=== PATIENT | female | born 1945 | race Caucasian/White ===

== ENCOUNTER 2019-07-02 11:33 | Emergency (ER) | payer MEDICARE ==
--- OUTSIDE RECORDS SUMMARY | 2019-07-02 11:38 | XMS REPORT | Summary of Care ---
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 diltiazem (CARTIA Take 1 Cap by 90 Cap 3 Active XT) 180 MG Oral mouth DAILY. 9 CAPSULE SR 24 HR famotidine (PEPCID) Take 1 Tab by 180 Tab 3 Active 20 MG Oral mouth TWICE 9 TabIndications: DAILY. Gastroesophageal reflux disease, esophagitis presence not specified predniSONE Take 1 Tab by 50 Tab 0 Active (DELTASONE) 10 MG mouth 9 Oral TabIndications: DIRECTED. Restrictive lung disease warfarin (JANTOVEN) Take 1-1.5 135 Tab 3 Active 4 MG Oral Tabs by mouth 9 TabIndications: DAILY. As Chronic atrial directed which fibrillation is 6mg Sun and Em. 4mg remaining days of week levalbuterol HFA Take 1-2 Puffs 0 Active (XOPENEX HFA) 45 by inhalation MCG/ACT Inhalation EVERY FOUR Aerosol HOURS NEEDED (shortness of breath). predniSONE Take 1 Tab by 90 Tab 0 Active (DELTASONE) 5 MG mouth DAILY. 9 Oral TabIndications: Chronic respiratory failure with hypercapnia (HCC) digoxin (LANOXIN, Take 1 Tab by 90 Tab 3 Active DIGITEK) 125 MCG mouth DAILY. 9 Oral Tab furosemide (LASIX) Take 1 Tab by 90 Tab 3 Active 20 MG Oral Tab mouth DAILY. 9 Fluticasone Take 1 INHL by 1 Each 5 Active Furoate-Vilanterol inhalation 9 (BREO ELLIPTA) DAILY. 100-25 MCG/INH Inhalation AEROSOL POWDER, BREATH ACTIVATEDIndications : Restrictive lung disease Fluticasone Take 1 INHL by 1 Each 5 05/18/20 Discontinued Furoate-Vilanterol inhalation 9 19 (Reorder) (BREO ELLIPTA) DAILY. 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 Referring Provider: Catie Indication: chronic Afib Target Range: 2.0-3.0 Duration: Indefinite Additional factors influencing anticoagulation: CHADS2 score of 2 for congestive heart failure and hypertension [id number] score of 4 for age > 65, congestive heart failure, hypertension, female gender Diltiazem increases warfarin effect Updated Referral: 07/05/14, 08/30/15, 10/07/16, 01/2018, 03/09/19 Updated ACS Orders: 1/22/15, 09/03/15, 10/07/16, 01/28/18, 03/29/19 Mitral regurgitation 04/07/2013 Chest wall deformity 05/22/2011 CHF (congestive heart failure) 07/17/2010 Hypoxemia 07/17/2010 Overview: Secondary to CHF Oxygent at 2 L/min at rest 4L/min with [facility] Mixed hyperlipidemia 05/09/2008 Paroxysmal ventricular tachycardia 05/09/2008 Overview: Non sustained Stress test negative 11/26 Left ventricular ejection fraction 52% 11/26. 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 Left ventricular ejection fraction 52%. documented as of this encounter (statuses as of 05/18/2019) Immunizations Name Administration Dates Next Due Depo Medrol (80mg) 09/06/2014 Influenza (IM) Preservative Free 03/23/2013, 04/05/2012, 03/31/2011 Influenza Vaccine High Dose 03/27/2014 Influenza Vaccine Whole 04/09/2009 Influenza Virus Vaccine - Whole 04/05/2008, 04/05/2007 Influenza Virus Vaccine Pres Free 6-35 03/26/2010 Months PNEUMOCOCCAL POLYSACCHARIDE VACCINE 06/22/2007 Pneumococcal Conjugate(13 Valent) 03/08/2015 documented as of this encounter Social History Tobacco Use Types Packs/Day Years Used Date Former Smoker Cigarettes 0.2 10 Quit: 05/22/1966 Smokeless Tobacco: Never Used Alcohol Use Drinks/Week oz/Week Comments No 0 Standard drinks or equivalent 0.0 Sex Assigned at Date Recorded Not on file Job Start Date Occupation Industry Not on file Not on file Not on file Travel History Travel Start Travel End No recent travel history available. documented as of this encounter Last Filed Vital Signs Vital Sign Reading Time Taken Comments Blood Pressure 148/78 05/18/2019 10:54 AM EST Pulse 91 05/18/2019 10:54 AM EST Temperature - - Respiratory Rate - - Oxygen Saturation 93% 05/18/2019 10:54 AM EST Inhaled Oxygen Concentration - - Weight 78.5 kg (173 lb) 05/18/2019 10:54 AM EST Height 167.6 cm (5' 6") 05/18/2019 10:54 AM EST Body Mass Index 27.92 05/18/2019 10:54 AM EST documented in this encounter Patient Instructions Patient InstructionsCreIngrid copeland MD - 05/18/2019 11:00 AM ESTPlan Continue 10 mg for 2 more days - Then go down to 7.5 mg X 7 days Then 5 mg - Hang out there for 1-2 weeks and then consider - You could then consider reduction by 1 mg - but you might wants toconsider staying on 3-5 mg consistently- documented in this encounter Progress Notes Ingrid Hollins MD - 05/18/2019 11:00 AM EST NAME:Swetha Nunez 1945: 1945 ENC Date: 05/18/2019 CC: Chief Complaint Patient presents with Follow Up 1 mo f/u Restrictive lung disease and prednisone Swetha Nunez is a 74-y.o. female Cardiopulmonary Disease Has significant restrictive lungs disease On trilogy - had exacerbation at last 2 visits and was improved with prednisone course ( was not improved with antibiotic ) 2. 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 diltiazem (CARTIA XT) 180 MG Oral CAPSULE SR 24 HR Take 1 Cap by mouth DAILY. famotidine (PEPCID) 20 MG Oral Tab Take 1 Tab by mouth TWICE DAILY. Fluticasone Furoate-Vilanterol (BREO ELLIPTA) 100-25 MCG/INH Inhalation AEROSOL POWDER, BREATH ACTIVATED Take 1 INHL by inhalation DAILY. furosemide (LASIX) 20 MG Oral Tab Take 1 Tab by mouth DAILY. levalbuterol HFA (XOPENEX HFA) 45 MCG/ACT Inhalation Aerosol Take 1-2 Puffs by inhalation EVERY FOUR HOURS NEEDED (shortness of breath). Polyethylene Glycol 3350 (MIRALAX PO) Take by mouth. predniSONE (DELTASONE) 10 MG Oral Tab Take 1 Tab by mouth DIRECTED. predniSONE (DELTASONE) 5 MG Oral Tab Take 1 Tab by mouth DAILY. warfarin (JANTOVEN) 4 MG Oral Tab Take 1-1.5 Tabs by mouth DAILY. As directed which is 6mg Sun and Em. 4mg remaining days of week No current facility-administered medications for this visit. Patient Active Problem List Diagnosis Date Noted Chronic respiratory failure with hypercapnia ([facility]) 06/28/2015 Priority: High senior care current use of anticoagulant therapy 08/23/2014 Priority: High Managed by: [facility] Referring Provider: Catie Indication: chronic Afib Target Range: 2.0-3.0 Duration: Indefinite Additional factors influencing anticoagulation: CHADS2 score of 2 for congestive heart failure and hypertension [id number] score of 4 for age > 65, congestive heart failure, hypertension, female gender Diltiazem increases warfarin effect Updated Referral: 07/05/14, 08/30/15, 10/07/16, 01/2018, 03/09/19 Updated ACS Orders: 07/13/14, 09/03/15, 10/07/16, 01/28/18, 03/29/19 CHF (congestive heart failure) ([facility]) 07/17/2010 Priority: High Hypoxemia 07/17/2010 Priority: High Secondary to CHF Oxygent at 2 L/min at rest 4L/min with activity [facility] Chronic atrial fibrillation 10/07/2016 COPD, severe ([facility]) 04/17/2015 [facility] at 2 LPM q 24 hours a day Mitral regurgitation 04/07/2013 Restrictive lung disease severe s/p left lower lung resection Chest wall deformity 05/22/2011 Mixed hyperlipidemia 05/09/2008 Paroxysmal ventricular tachycardia (HCC) 05/09/2008 Non sustained Stress test negative 11/26 Left ventricular ejection fraction 52% 11/26. Essential hypertension, benign 07/14/2007 GERD (gastroesophageal reflux disease) 07/14/2007 Family History Problem Relation Age of Onset Pulmonary Mother smoker Heart Disease Father Hypertension Father No cardiopulmonary symptoms No upper or lower GI complaints No urinary tract symptoms. No bruising/ bleeding. No neurological complaints . No insomnia.+ . Social History Tobacco Use Smoking status: Former Smoker Packs/day: 0.20 Years: 10.00 Pack years: 2.00 Types: Cigarettes Last attempt to quit: 05/22/1966 Years since quittin.0 Smokeless tobacco: Never Used Substance Use Topics Alcohol use: No Alcohol/week: 0.0 standard drinks Drug use: No OBJECTIVE: BP 148/78 | Pulse 91 | Ht 5' 6" (1.676 m) | Wt 173 lb (78.5 kg) | SpO2 93% | BMI 27.92 kg/m. Heent neg Neck no JVD, thyromegaly or bruit Lungs Clear CV rrr Abd soft, nontender, no organomegaly Ext no edema; no lesions; pulses intact Neuro: intellect intact ; motor including gait unremarkable A/P ICD-9-CM ICD-10-CM 1. Chronic atrial fibrillation 427.31 I48.20 2. Restrictive lung disease 518.89 J98.4 Fluticasone Furoate-Vilanterol (BREO ELLIPTA) 100-25 MCG/INH Inhalation AEROSOL POWDER, BREATH ACTIVATED 3. senior care current use of anticoagulant therapy V58.61 Z79.01 4. Essential hypertension, benign 401.1 I10 BASIC METABOLIC PANEL Patient Instructions Plan Continue 10 mg for 2 more days - Then go down to 7.5 mg X 7 days Then 5 mg - Hang out there for 1-2 weeks and then consider - You could then consider reduction by 1 mg - but you might wants toconsider staying on 3-5 mg consistently- AUTHOR: Ingrid Hollins MD 12:03 05/18/2019 documented in this encounter Plan of Treatment Date Type Specialty Care Team Description 05/27/2019 AntiCoag Anticoagulation 06/10/2019 Office Visit [place] [address] [place] [address] [phone] 07/28/2019 Office Visit Pulmonary Romeo Singh MD [address] [place] [address] [phone] 11/02/2019 Office Visit Cardiology Adry Frank CRNP [address] [address] [phone] Name Type Priority Associated Diagnoses Order Schedule BASIC METABOLIC PANEL Lab Routine Essential hypertension, Expected: 2018 benign (Approximate), Expires: 11/14/2019 Health Maintenance Due Date Last Done Comments OSTEOPOROSIS SCREENING 2011 LIPID DISORDER SCREENING 10/06/2019 10/05/2018, 05/01/2009, 08/01/2008, Additional history exists DEPRESSION SCREENING 10/14/2019 10/13/2018, 10/13/2018 FALL RISK ASSESSMENT 10/14/2019 10/13/2018, 10/13/2018 PNEUMOCOCCAL 65+YRS (2 of 2 04/12/2020 03/08/2015, 06/22/2007 Postponed from - PPSV23) 03/08/2016 (Patient refused) INFLUENZA VACCINE (#1) 2020 03/27/2014, 03/23/2013, Postponed from 04/05/2012, Additional 02/20/2019 (Patient history exists refused) ZOSTER IMMUNIZATION SERIES 05/18/2020 Postponed from (1 of 2) 1996 (Vaccine not available) HPV IMMUNIZATION SERIES Aged Out No longer eligible based on patient's age to complete this topic MEDICARE ANNUAL WELLNESS Discontinued VISIT MENINGOCOCCAL VACCINE IMM Aged Out No longer eligible based on patient's age to complete this topic documented as of this encounter Goals Goal Patient Goal Associated Recent Patient-Stated? Author Type Problems Progress Blood Pressure Blood Pressure 148/78 No Crepet, < 150/90 (05/18/2019 MD Ingrid 10:54 AM EST) Note: This is an individualized treatment (blood pressure) goal for Swetha Nunez: Displayed above (on the left) is your goal for blood pressure control. Your most recent blood pressure is also shown above, on the right. You should try to achieve blood pressures that are lower than your goal listed above (on the left). Weight increase vs. 18 mo min CHF 5 (05/18/2019 10:54 AM EST) Ingrid Maya MD (lbs) < 5 Note: This is an individualized treatment (congestive heart failure, CHF) goal for Swetha Nunez: Displayed above (on the right) is how many pounds you are in excess of your lowest weight over the past 18 months. Note that lower numbers are better. Excessive weight gain often indicates fluid reten tion and worsening heart failure. You should contact your doctor immediately if the above number is too high (above your goal, the number on the left). Keep immunizations current Lifestyle Ingrid Maya MD Note: This is an individualized lifestyle goal for Swetha Nunez: Please be sure to keep up-to-date on recommended immunizations. For example, this would include a yearly influenza vaccine. Immunization status can be seen by looking at the Health Maintenance sections of your e[facility], Plan of Care, and any After Visit Summaries. Consume a me-oarwf-ubey diet Lifestyle Ingrid Maya MD Note: This is an individualized lifestyle goal for Swetha Nunez: Please do not add additional salt to your food. Additional salt may lead to fluid retention and worsen your congestive heart failure. Take all prescribed medications as directed Self-management Ingrid Maya MD Note: This is an individualized self-management goal for Swetha Nunez: Please take all prescribed medications as directed. 1. Do not skip doses. If you cannot afford your medications, talk with your doctor. 2. Use a pill reminder system such as a pill box if needed. Your pharmacist can help you with this. 3. Contact your Pharmacy 5 days before your medication runs out. If you cannot take your medications for any reasons, talk with your doctor. 4. Please bring all of your medication bottles and inhalers (or a list of all your medications/inhalers) with you to every visit. Potential barriers to meeting all of your care plan goals will continue to be addressed on an ongoing basis. Check your weight daily Self-management Ingrid Maya MD Note: This is an individualized self-management goal for Swetha Nunez: Please check your weight daily. Refer to the accompanying CHF treatment goal and call your doctor immediately for further instructions on how to respond to unexpected weight gain. documented as of this encounter Results Not on filedocumented in this encounter Visit Diagnoses Diagnosis Chronic atrial fibrillation - Primary Atrial fibrillation Restrictive lung disease Other diseases of lung, not elsewhere classified senior care current use of anticoagulant therapy Essential hypertension, benign documented in this encounter Insurance Payer Benefit Plan / Subscriber ID Effective Dates Phone Address Type Group MEDICARE MEDICARE PART A xxxxxxxxxxx 1975-Present Medicare & B [facility] COMM[facility]CIAL [facility] xxxxxxxxxxx 2016-Present [facility] OPTIONS Guarantor Name Account Type Relation to Date of Phone Billing Address Patient Swetha Mane Personal/Family 1945 [address] [phone] [place], [place] (Work) [address] documented as of this encounter Advance Directives Code Status Date Activated Date Inactivated Comments Full Code 03/27/2015 7:27 PM 04/04/2015 2:21 PM Does patient have decision making capacity? yes Order discussed with: Patient I discussed all options and patient/surrogate requested and agreed to: Other (full code) DNR 03/22/2015 6:24 PM 03/27/2015 7:27 PM Does patient have decision making capacity? yes Order discussed with: Patient I discussed all options and patient/surrogate requested and agreed to: Do not resuscitate (DNR)
--- OUTSIDE RECORDS SUMMARY | 2019-07-02 11:38 | XMS REPORT | Summary of Care ---
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 Chronic diastolic CHF (congestive heart failure), NYHA class 2 ([facility]); [address] [facility] Mitral valve insufficiency, unspecified etiology; [place] [address] [address] [place] [address] COPD, severe ([facility]) [phone] Allergies Active Allergy Reactions Severity Noted Date Comments Albuterol Sulfate Cardiac Reaction 04/10/2011 Penicillins Unknown Reaction 12/30/2006 Metoprolol Respiratory Reaction 03/05/2011 Shortness of breath, fatigue documented as of this encounter (statuses as of 05/04/2019) Medications Medication Sig Dispensed Refills Start End Date Status Date Polyethylene Glycol Take by 0 Active 3350 (MIRALAX PO) mouth. Fluticasone Take 1 INHL by 1 Each 5 Active Furoate-Vilanterol inhalation 9 (BREO ELLIPTA) DAILY. 100-25 MCG/INH Inhalation AEROSOL POWDER, BREATH ACTIVATED diltiazem (CARTIA Take 1 Cap by 90 [...] 20 MG Oral Tab mouth DAILY. 9 furosemide (LASIX) Take 1 Tab by 90 Tab 3 05/04/20 Discontinued 20 MG Oral Tab mouth DAILY. 8 19 (Reorder) digoxin (LANOXIN, Take 1 Tab by 90 Tab 3 05/04/20 Discontinued DIGITEK) 125 MCG mouth DAILY. 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 08/23/2014 Overview: [facility] Referring Provider: Catie Indication: chronic Afib Target Range: 2.0-3.0 Duration: Indefinite Additional factors influencing anticoagulation: CHADS2 score of 2 for congestive heart failure and hypertension [id number] score of 4 for age > 65, congestive heart failure, hypertension, female gender Diltiazem increases warfarin effect Updated Referral: 07/05/14, 08/30/15, 10/07/16, 01/2018, 03/09/19 Updated ACS Orders: 07/13/14, 09/03/15, 10/07/16, 01/28/18, 03/29/19 Mitral regurgitation 04/07/2013 Chest wall deformity 05/22/2011 CHF (congestive heart failure) 07/17/2010 Hypoxemia 07/17/2010 Overview: Secondary to CHF Oxygent at 2 L/min at rest 4L/min with activity through [facility] Mixed hyperlipidemia 05/09/2008 Paroxysmal ventricular tachycardia 05/09/2008 Overview: Non sustained Stress test negative 11/26 Left ventricular ejection fraction 52% 11/26. 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 Left ventricular ejection fraction 52%. documented as of this encounter (statuses as of 05/04/2019) Immunizations Name Administration Dates Next Due Depo [...] Sign Reading Time Taken Comments Blood Pressure 118/60 05/04/2019 2:19 PM EST Pulse 96 05/04/2019 2:19 PM EST Temperature - - Respiratory Rate - - Oxygen Saturation - - Inhaled Oxygen Concentration - - Weight 77.6 kg (171 lb) 05/04/2019 2:19 PM EST Height - - Body Mass Index 27.6 04/13/2019 2:49 PM EDT documented in this encounter Patient Instructions Patient InstructionsHuAdry priest CRNP - 05/04/2019 2:20 PM ESTFollow up in 6 months continue to monitor heart rate and blood pressure Call if symptoms changeElectronically signed by Adry Frank CRNP at 05/04 2:39 PM EST documented in this encounter Plan of Treatment Date Type Specialty Care Team Description 05/18/2019 AntiCoag Anticoagulation 05/18/2019 Office Visit Internal Medicine Ingrid Hollins MD [address] [place] [address] [phone] 06/10/2019 Office Visit Internal Medicine Ingrid Hollins MD [address] [place] [address] [phone] 07/28/2019 Office Visit Pulmonary Romeo Singh MD [address] [place] [address] [phone] 11/02/2019 Office Visit Cardiology Adry Frank CRNP [address] [address] Health Maintenance Due Date Last Done Comments ZOSTER IMMUNIZATION SERIES 1996 (1 of 2) OSTEOPOROSIS SCREENING 2011 LIPID DISORDER SCREENING 10/06/2019 10/05/2018, 05/01/2009, 08/01/2008, Additional history exists DEPRESSION SCREENING 10/14/2019 10/13/2018, 10/13/2018 FALL RISK ASSESSMENT 10/14/2019 10/13/2018, 10/13/2018 PNEUMOCOCCAL 65+YRS (2 of 2 04/12/2020 03/08/2015, 06/22/2007 Postponed from - PPSV23) 03/08/2016 (Patient refused) INFLUENZA VACCINE (#1) 2020 03/27/2014, 03/23/2013, Postponed from 04/05/2012, Additional 02/20/2019 (Patient history exists refused) HPV IMMUNIZATION SERIES Aged Out No longer eligible based on patient's age to complete this topic MEDICARE ANNUAL WELLNESS Discontinued VISIT MENINGOCOCCAL VACCINE IMM Aged Out No longer eligible based on patient's age to complete this topic documented as of this encounter Goals Goal Patient Goal Associated Recent Patient-Stated? Author Type Problems Progress Blood Pressure Blood Pressure 118/60 No Gurvinder, < 150/90 (05/04/2019 MD Ingrid 2:19 PM EST) Note: This is an individualized treatment (blood pressure) goal for Swetha Nunez: Displayed above (on the left) is your goal for blood pressure control. Your most recent blood pressure is also shown above, on the right. You should try to achieve blood pressures that are lower than your goal listed above (on the left). Weight increase vs. 18 mo min CHF 3 (05/04/2019 2:19 PM EST) No Ingrid Hollins MD (lbs) < 5 Note: This is [...] and any After Visit Summaries. Consume a nm-bvwoy-pyqj diet Lifestyle Ingrid Maya MD Note: This [...] Chronic atrial fibrillation - Primary Atrial fibrillation Chronic diastolic CHF (congestive heart failure), NYHA class 2 (HCC) Chronic diastolic heart failure Mitral valve insufficiency, unspecified etiology COPD, severe (HCC) Chronic airway obstruction, not elsewhere classified documented in this encounter Insurance Payer Benefit Plan / Subscriber ID Effective Dates Phone Address Type Group MEDICARE MEDICARE PART A xxxxxxxxxxx 1975-Present Medicare & B [facility] COMMERCIAL [facility] CARE xxxxxxxxxxx 2016-Present [facility] OPTIONS ([address]) [address] [phone] [place], [place] (Work) [address] documented as of this encounter Advance Directives [...]
[2019-07-02 11:47] VITALS: BP 142/91
--- NOTE | 2019-07-02 12:18 | UC ---
Abdominal Pain Female HPI - HPI Summary HPI Summary: RLQ abdominal pain x 1 days sudden onset sever pain 10 out 10 , sharp radiating to groin , lasted 2 hrs and resolved after she voided a few time + frequency, no dysuria , no n/v/d/c hx of kidney stones - History of Current Complaint Chief Complaint: UCGU Stated Complaint: URINARY COMPLAINT Time Seen by Provider: 07/02/19 11:39 Hx Obtained From: Patient Onset/Duration: Sudden Onset, Lasting Days - 1, Resolved Timing: Intermittent Episodes Lasting: - 2 hrs Severity Initially: Severe Severity Currently: None Pain Intensity: 0 Location: Discrete At: RLQ Radiates: Yes Radiates to: Inguinal Character: Sharp Aggravating Factor(s): Nothing Alleviating Factor(s): Nothing Associated Signs and Symptoms: Positive: Urinary Symptoms. Negative: Fever, Cough, Chest Pain, Dizzy, Back Pain, Constipation, Blood in Stool, Decreased Appetite, Vaginal Bleeding, Vaginal Discharge, Nausea, Vomiting, Diarrhea Allergies/Adverse Reactions: Allergies Allergy/AdvReac Type Severity Reaction Status Date / Time Penicillins Allergy Swelling Verified 07/02/19 11:39 Of Face,Lips,& Throat Home Medications: Home Medications Fluticasone/Vilanterol MDI(NF) [Breo Ellipta MDI 100/25(NF)] 1 puff INH DAILY WITH MEAL 07/02/19 [History Confirmed 07/02/19] PMH/Surg Hx/FS Hx/Imm Hx Cardiovascular History: Cardiac Disease, Atrial Fibrillation Respiratory History: COPD - Surgical History Surgical History: Yes Surgery Procedure, Year, and Place: 1971 LL lobectomy - Family History Known Family History: Negative: Cardiac Disease, Hypertension, Diabetes - Social History Alcohol Use: Rare Substance Use Type: None Smoking Status (MU): Never Smoked Tobacco - Immunization History Most Recent Influenza Vaccination: 2017 Most Recent Pneumonia Vaccination: Past Review of Systems All Other Systems Reviewed And Are Negative: Yes Is Patient Immunocompromised?: No Physical Exam Triage Information Reviewed: Yes Appearance: Well-Appearing, No Pain Distress, Well-Nourished Vital Signs: Initial Vital Signs Temp 97.9 F 07/02/19 11:41 Pulse 104 07/02/19 11:41 Resp 18 07/02/19 11:41 BP 142/91 07/02/19 11:41 Pulse Ox 99 07/02/19 11:41 Vital Signs Reviewed: Yes Eye Exam: Normal Eyes: Positive: Conjunctiva Clear ENT: Positive: Normal ENT inspection, Hearing grossly normal, Pharynx normal Neck: Positive: Supple, Nontender, No Lymphadenopathy Respiratory: Positive: Chest non-tender, Decreased breath sounds Cardiovascular: Positive: RRR, No Murmur, Pulses Normal Abdomen Description: Positive: Nontender, Soft. Negative: CVA Tenderness (R), CVA Tenderness (L), Distended, Guarding Bowel Sounds: Positive: Present Skin Exam: Normal Abd Pain Female Course/Dx - Differential Dx/Diagnosis Provider Diagnosis: Renal colic on right side Discharge ED - Sign-Out/Discharge Documenting (check all that apply): Patient Departure All imaging exams completed and their final reports reviewed: No Studies - Discharge Plan Condition: Stable Disposition: HOME Patient Education Materials: Renal Colic (ED) Referrals: Ingrid Hollins MD [Primary Care Provider] - If Needed Additional Instructions: your pain was most likely due to passing a kidney stone no further treatment/ work-up needed at this time cont. with rest, increase fluid intake for few days take Tylenol as needed for pain - Billing Disposition and Condition Condition: STABLE Disposition: Home
== END 2019-07-02 12:25 | disposition home or self-care (01) ==
LOC: UCEAST 11:33
DX: N23 Unspecified renal colic (principal); J44.9 Chronic obstructive pulmonary disease, unspecified; Z79.51 Long term (current) use of inhaled steroids; Z88.0 Allergy status to penicillin
CPT/HCPCS: 81003; 99211; G0463

== ENCOUNTER 2021-10-23 05:39 | Inpatient (IN) ==
[2021-10-23] MEDS ORDERED: Albuterol 0.5% CONC CONTINUOUS NEB.SOL 5 mg/ml 20 ml BOT INH ONE (05:57)
[2021-10-23] MEDS ORDERED: methylPREDNISolone 125 mg 2 ML VIAL IV ONE (05:57)
[2021-10-23 05:58] LABS: Hematocrit 45 % (35-47); Hemoglobin 14.4 g/dL (12.0-16.0); Mean Corpuscular HGB Conc 32 g/dL (31-36); Mean Corpuscular Hemoglobin 27 pg (27-31); Mean Corpuscular Volume 85 fL (80-97); Platelet Count 239 10^3/uL (150-450); Red Blood Count 5.36 10^6 /uL (3.70-4.87); Red Cell Distribution Width 15 % (10-15); White Blood Count 7.3 10^3/uL (3.5-10.8)
[2021-10-23] MEDS ORDERED: Albuterol 2.5mg/3 ml (0.083%) NEB.SOLN INH ONE ×2 (05:59→06:05)
[2021-10-23 06:55] LABS: Albumin 4.4 g/dL (3.2-5.2); Albumin/Globulin Ratio 1.3 (1-3); Calcium 9.3 mg/dL (8.6-10.3); Globulin 3.5 g/dL (2-4); Potassium 4.2 mmol/L (3.5-5.0); Total Bilirubin 0.8 mg/dL (0.2-1.0); Total Protein 7.9 g/dL (6.4-8.9); eGFR CKD-EPI 94.3 (>60)
[2021-10-23 07:22] LABS: High Sensitivity Troponin 1 Hr 20 pg/mL (<15)
[2021-10-23 07:27] LABS: ABS Lymphocytes 0.8 10^3/ul (1.0-4.8); ABS Monocytes 2.2 10^3/ul (0-0.8); ABS Neutrophils 4.3 10^3/ul (1.5-7.7); Lymphocyte % 10.3 %; Nucleated Red Blood Cells % 0.2
[2021-10-23 07:34] LABS: PCO2 Arterial 69 mmHg (35-45); PO2 Arterial 231 mmHg (80-100)
[2021-10-23 07:34] LABS: Anisocytosis 1+
[2021-10-23] MEDS ORDERED: Albuterol/Ipratropium NEB.SOL (2.5/0.5 MG) 3 ML NEB.SOLN INH ONE (09:47)
[2021-10-23 11:41] LABS: Digoxin 0.7 ng/ml (0.8-2.0)
[2021-10-23] MEDS ORDERED: Polyethylene Glycol 3350 17 GM PACKET PO PRN (11:43)
[2021-10-23] MEDS ORDERED: Furosemide 40 mg/4 ml IV VIAL IV SLOW PU ONE (11:46)
[2021-10-23 12:41] LABS: Magnesium 2.1 mg/dL (1.9-2.7); Phosphorus 3.4 mg/dL (2.5-5.0)
[2021-10-23] MEDS ORDERED: cefTRIAXone 1 gm/50 mL D5W 1 GM/50 ML BAG IV ONE (12:45)
[2021-10-23] MEDS: Levalbuterol 1.25MG/0.5ML NEB.SOL INH SCH ×4 (13:21→23:11)
[2021-10-23] MEDS: methylPREDNISolone SOD 40 mg/ml 1 ml VIAL IV SCH ×2 (15:40→20:48)
[2021-10-23] MEDS: cefTRIAXone 1 gm/50 mL D5W 1 GM/50 ML BAG IV SCH (15:58)
[2021-10-23] MEDS: Azithromycin 500 mg/250 ml NS 500 MG/250 ML BAG IVPB SCH (17:02)
[2021-10-23] MEDS ORDERED: Warfarin per PHARMACY **NOTE FOLLOW UP SCH (18:00)
[2021-10-24] MEDS: Levalbuterol 1.25MG/0.5ML NEB.SOL INH SCH ×4 (03:12→19:36)
[2021-10-24 05:03] LABS: ABS Lymphocytes 0.2 10^3/ul (1.0-4.8); ABS Monocytes 0.2 10^3/ul (0-0.8); ABS Neutrophils 1.9 10^3/ul (1.5-7.7); Eosinophil % 0.1 %; Hematocrit 40 % (35-47); Hemoglobin 12.9 g/dL (12.0-16.0); Lymphocyte % 8.7 %; Mean Corpuscular HGB Conc 32 g/dL (31-36); Mean Corpuscular Hemoglobin 27 pg (27-31); Mean Corpuscular Volume 85 fL (80-97); Mean Platelet Volume 8.7 fL (7.4-10.4); Nucleated Red Blood Cells % 0.2; Platelet Count 181 10^3/uL (150-450); Red Blood Count 4.76 10^6 /uL (3.70-4.87); Red Cell Distribution Width 15 % (10-15); White Blood Count 2.3 10^3/uL (3.5-10.8)
[2021-10-24 05:09] LABS: INR 2.11 (0.86-1.15)
[2021-10-24 05:38] LABS: Calcium 8.6 mg/dL (8.6-10.3); Potassium 3.9 mmol/L (3.5-5.0); eGFR CKD-EPI 93.5 (>60)
[2021-10-24] MEDS: methylPREDNISolone SOD 40 mg/ml 1 ml VIAL IV SCH ×3 (05:58→22:26)
[2021-10-24] MEDS ORDERED: acetaZOLAMIDE IV 500 MG in NS 0.9% 50 ML 50 ML IVPB ONE (11:00)
[2021-10-24] MEDS: cefTRIAXone 1 gm/50 mL D5W 1 GM/50 ML BAG IV SCH (15:11)
[2021-10-24] MEDS: Azithromycin 500 mg/250 ml NS 500 MG/250 ML BAG IVPB SCH (16:26)
[2021-10-24] MEDS: Warfarin DAILY REMINDER **NOTE FOLLOW UP SCH (16:29)
[2021-10-25] MEDS: Levalbuterol 1.25MG/0.5ML NEB.SOL INH SCH ×3 (01:37→14:19)
[2021-10-25 02:11] LABS: Calcium 8.9 mg/dL (8.6-10.3); Magnesium 2.4 mg/dL (1.9-2.7); Potassium 4.1 mmol/L (3.5-5.0); eGFR CKD-EPI 91.4 (>60)
[2021-10-25] MEDS: methylPREDNISolone SOD 40 mg/ml 1 ml VIAL IV SCH ×3 (04:29→22:51)
[2021-10-25 04:42] LABS: Hematocrit 44 % (35-47); Hemoglobin 13.8 g/dL (12.0-16.0); Mean Corpuscular HGB Conc 31 g/dL (31-36); Mean Corpuscular Hemoglobin 27 pg (27-31); Mean Corpuscular Volume 87 fL (80-97); Mean Platelet Volume 8.9 fL (7.4-10.4); Platelet Count 214 10^3/uL (150-450); Red Cell Distribution Width 15 % (10-15)
[2021-10-25 04:48] LABS: INR 2.73 (0.86-1.15)
[2021-10-25 05:05] LABS: Potassium 4.2 mmol/L (3.5-5.0); eGFR CKD-EPI 92.8 (>60)
[2021-10-25 08:37] LABS: ABS Lymphocytes 0.3 10^3/ul (1.0-4.8); ABS Monocytes 0.6 10^3/ul (0-0.8); ABS Neutrophils 2.2 10^3/ul (1.5-7.7); Lymphocyte % 9.2 %; Nucleated Red Blood Cells % 0.1
[2021-10-25 08:39] LABS: RBC Morphology Normal (Normal)
[2021-10-25] MEDS: cefTRIAXone 1 gm/50 mL D5W 1 GM/50 ML BAG IV SCH (16:04)
[2021-10-25] MEDS: Warfarin DAILY REMINDER **NOTE FOLLOW UP SCH (16:08)
[2021-10-26 05:19] LABS: Hematocrit 44 % (35-47); Hemoglobin 13.7 g/dL (12.0-16.0); Mean Corpuscular HGB Conc 31 g/dL (31-36); Mean Corpuscular Hemoglobin 27 pg (27-31); Mean Corpuscular Volume 86 fL (80-97); Mean Platelet Volume 8.6 fL (7.4-10.4); Platelet Count 212 10^3/uL (150-450); Red Blood Count 5.06 10^6 /uL (3.70-4.87); Red Cell Distribution Width 15 % (10-15); White Blood Count 2.3 10^3/uL (3.5-10.8)
[2021-10-26 05:24] LABS: INR 3.65 (0.86-1.15)
[2021-10-26 05:29] LABS: ABS Lymphocytes 0.2 10^3/ul (1.0-4.8); ABS Monocytes 0.3 10^3/ul (0-0.8); ABS Neutrophils 1.8 10^3/ul (1.5-7.7); Lymphocyte % 9.2 %; Nucleated Red Blood Cells % 0.7
[2021-10-26 05:44] LABS: Potassium 4.7 mmol/L (3.5-5.0)
[2021-10-26] MEDS: methylPREDNISolone SOD 40 mg/ml 1 ml VIAL IV SCH ×3 (05:51→20:13)
[2021-10-26] MEDS: SPIRIVA Respimat (tiotropium) 2.5 mcg/inh Inhaler INH SCH (07:17)
[2021-10-26] MEDS: Albuterol HFA INHALER 8 gm MDI INH PRN (10:50)
[2021-10-26] MEDS: cefTRIAXone 1 gm/50 mL D5W 1 GM/50 ML BAG IV SCH (14:33)
[2021-10-26] MEDS: Warfarin DAILY REMINDER **NOTE FOLLOW UP SCH (16:55)
[2021-10-26] MEDS ORDERED: Warfarin - No Order Today **NOTE FOLLOW UP ONE (17:00)
[2021-10-27 05:24] LABS: Hematocrit 45 % (35-47); Hemoglobin 14.2 g/dL (12.0-16.0); Mean Corpuscular HGB Conc 31 g/dL (31-36); Mean Corpuscular Hemoglobin 27 pg (27-31); Mean Corpuscular Volume 85 fL (80-97); Mean Platelet Volume 8.4 fL (7.4-10.4); Platelet Count 235 10^3/uL (150-450); Red Cell Distribution Width 15 % (10-15); White Blood Count 2.3 10^3/uL (3.5-10.8)
[2021-10-27 05:25] LABS: ABS Lymphocytes 0.2 10^3/ul (1.0-4.8); ABS Monocytes 0.2 10^3/ul (0-0.8); ABS Neutrophils 1.8 10^3/ul (1.5-7.7); Lymphocyte % 10.6 %; Nucleated Red Blood Cells % 0.2
[2021-10-27 05:48] LABS: Calcium 9.2 mg/dL (8.6-10.3); Chloride 94 mmol/L (101-111); Magnesium 2.1 mg/dL (1.9-2.7); Potassium 4.3 mmol/L (3.5-5.0); Sodium 142 mmol/L (135-145)
[2021-10-27 05:54] LABS: Blood Urea Nitrogen 27 mg/dL (6-24); Glucose 155 mg/dL (70-100); eGFR CKD-EPI 97.3 (>60)
[2021-10-27 06:06] LABS: CO2 Carbon Dioxide 46 mmol/L (22-32)
[2021-10-27 06:09] LABS: INR 2.98 (0.86-1.15)
[2021-10-27] MEDS: Albuterol HFA INHALER 8 gm MDI INH PRN ×2 (06:55→17:03)
[2021-10-27] MEDS: SPIRIVA Respimat (tiotropium) 2.5 mcg/inh Inhaler INH SCH (07:00)
[2021-10-27] MEDS: cefTRIAXone 1 gm/50 mL D5W 1 GM/50 ML BAG IV SCH (13:55)
[2021-10-27] MEDS: Warfarin DAILY REMINDER **NOTE FOLLOW UP SCH (17:11)
[2021-10-27] MEDS: Mometasone/Formoter 100/5 MDI INH SCH ×3 (20:19→20:28)
[2021-10-28] MEDS: Albuterol HFA INHALER 8 gm MDI INH PRN ×2 (00:49→11:57)
[2021-10-28 06:28] LABS: Hematocrit 44 % (35-47); Hemoglobin 13.7 g/dL (12.0-16.0); Mean Corpuscular HGB Conc 31 g/dL (31-36); Mean Corpuscular Hemoglobin 27 pg (27-31); Mean Corpuscular Volume 86 fL (80-97); Mean Platelet Volume 8.2 fL (7.4-10.4); Platelet Count 223 10^3/uL (150-450); Red Blood Count 5.07 10^6 /uL (3.70-4.87); Red Cell Distribution Width 14 % (10-15); White Blood Count 3.2 10^3/uL (3.5-10.8)
[2021-10-28 06:41] LABS: INR 2.61 (0.86-1.15)
[2021-10-28 06:46] LABS: Calcium 8.7 mg/dL (8.6-10.3); Potassium 3.9 mmol/L (3.5-5.0); eGFR CKD-EPI 93.5 (>60)
[2021-10-28 07:16] LABS: ABS Lymphocytes 0.5 10^3/ul (1.0-4.8); ABS Monocytes 0.8 10^3/ul (0-0.8); ABS Neutrophils 1.9 10^3/ul (1.5-7.7); Lymphocyte % 16.5 %; Nucleated Red Blood Cells % 0.1
[2021-10-28] MEDS: SPIRIVA Respimat (tiotropium) 2.5 mcg/inh Inhaler INH SCH (07:21)
[2021-10-28] MEDS: Mometasone/Formoter 100/5 MDI INH SCH ×2 (07:21→20:34)
[2021-10-28] MEDS: cefTRIAXone 1 gm/50 mL D5W 1 GM/50 ML BAG IV SCH (14:10)
[2021-10-28] MEDS: Warfarin DAILY REMINDER **NOTE FOLLOW UP SCH (16:39)
[2021-10-29 06:00] LABS: PCO2 Arterial 65 mmHg (35-45); PO2 Arterial 65 mmHg (80-100)
[2021-10-29] MEDS: Mometasone/Formoter 100/5 MDI INH SCH (07:12)
[2021-10-29] MEDS: SPIRIVA Respimat (tiotropium) 2.5 mcg/inh Inhaler INH SCH (07:12)
[2021-10-29] MEDS: Albuterol HFA INHALER 8 gm MDI INH PRN (07:17)
[2021-10-29 08:14] LABS: Hematocrit 45 % (35-47); Hemoglobin 14.4 g/dL (12.0-16.0); Mean Corpuscular HGB Conc 32 g/dL (31-36); Mean Corpuscular Hemoglobin 27 pg (27-31); Mean Corpuscular Volume 85 fL (80-97); Mean Platelet Volume 8.4 fL (7.4-10.4); Platelet Count 254 10^3/uL (150-450); Red Blood Count 5.33 10^6 /uL (3.70-4.87); Red Cell Distribution Width 15 % (10-15); White Blood Count 3.6 10^3/uL (3.5-10.8)
[2021-10-29 08:18] LABS: INR 2.3 (0.86-1.15)
[2021-10-29 08:24] LABS: Calcium 8.9 mg/dL (8.6-10.3); Potassium 3.8 mmol/L (3.5-5.0); eGFR CKD-EPI 93.9 (>60)
[2021-10-29] MEDS ORDERED: FLUTICASONE/UMECLIDIN/VILANTER 1 PUFF MDI INH SCH (09:00)
[2021-10-29 10:21] LABS: ABS Lymphocytes 0.6 10^3/ul (1.0-4.8); ABS Monocytes 0.7 10^3/ul (0-0.8); ABS Neutrophils 2.2 10^3/ul (1.5-7.7); Eosinophil % 0.2 %; Nucleated Red Blood Cells % 0.1
[2021-10-29 11:26] VITALS: BP 130/70
== END 2021-10-29 14:32 | disposition home health service (06) | DRG 190 ==
LOC: ED 05:39 → EDHOLD 11:41 → SUATTDRO 11:41 → EDHOLD 12:42 → ICU 13:38 → MED 10-25 14:15
PROVIDERS: ADMIT Surgery Surgical Critical Care; ATTEND Internal Medicine